=== PATIENT | female | born 1975 | race African-American/Black ===

== ENCOUNTER 2021-07-14 15:30 | Inpatient (IN) | payer MEDICAID ==
[~2021-07-14] VITALS: Ht 152.4 cm; Wt 73.1 kg
[2021-07-14] MEDS ORDERED: HYDROmorphone HCL 2 MG/ML VL IV ONE (16:30)
[2021-07-14] MEDS ORDERED: ONDANSETRON HCL 4 MG/2 ML VIAL IV ONE (16:30)
[2021-07-14] MEDS ORDERED: SODIUM CHLORIDE 0.9% 1,000 ML IV ONE (16:30)
[2021-07-14 16:41] LABS: Urine Bacteria NONE SEEN /hpf (None Seen); Urine Blood Negative /uL (Negative); Urine WBC 7 /hpf (0 - 5)
[2021-07-14 16:43] LABS: Basophils # (auto) 0 10 ^3/uL (0-0.2); Basophils % (auto) 0.2 % (0.0-2.0); Eosinophils # (auto) 0 10 ^3/uL (0-0.8); Eosinophils % (auto) 0.2 % (0.0-7.0); Hematocrit 44.1 % (36.0-46.0); Hemoglobin 14.8 g/dL (12.2-16.2); Lymphocytes # (auto) 0.4 10 ^3/uL (0.4-5.4); Lymphocytes % (auto) 5.9 % (10.0-50.0); Mean Corpuscular Hemoglobin 27.6 pg (28.0-32.0); Mean Corpuscular Hgb Conc. 33.5 g/dL (32.0-36.0); Mean Corpuscular Volume 82.4 fL (80.0-100.0); Monocytes # (auto) 0.6 10 ^3/uL (0-1.3); Monocytes % (auto) 8.3 % (0.0-12.0); Neutrophils # (auto) 6.2 10 ^3/uL (1.6-8.6); Neutrophils % (auto) 85.4 % (37.0-80.0); Red Blood Cells 5.36 10^6/uL (4.0-5.20); Red Cell Distribution Width 13.7 % (11.8-14.3); White Blood Cell 7.3 10^3/uL (4.4-10.8)
[2021-07-14 17:06] LABS: Albumin 3.8 g/dL (3.4-5.0); BUN/Creatinine Ratio 5.7; Calcium 9.3 mg/dL (8.5-10.1)
[2021-07-14 17:22] LABS: Bilirubin, Total 0.2 mg/dL (0.2-1.0); Total Protein 7.6 g/dL (6.4-8.2)
[2021-07-14] MEDS ORDERED: HYDROcodone-ACET 5/325MG TAB PO ONE (18:15)
[2021-07-14] MEDS ORDERED: PERCOT PO (21:14)
[2021-07-14] MEDS ORDERED: NITR-87 PO (21:14)
[2021-07-14] MEDS ORDERED: cefTRIAXone 1GM/50ML D5W 50 ML IV ONE (21:15)
[2021-07-15] MEDS ORDERED: SODIUM CHLORIDE 0.9% 1,000 ML IV ONE (00:30)
[2021-07-15] MEDS ORDERED: ACETAMINOPHEN 500 MG TAB PO ONE (03:45)
[2021-07-15] MEDS ORDERED: IOHEXOL 350 MG/ML 100ML IJ ONE (10:09)
[2021-07-15] MEDS ORDERED: ACETAMINOPHEN 500 MG TAB PO PRN (10:15)
[2021-07-15] MEDS ORDERED: NITROGLYCERIN 0.4 MG SL TAB SL PRN ×2 (10:15→15:15)
[2021-07-15] MEDS ORDERED: MORPHINE SULFATE INJECTION 2 MG/ML SYRG IV PRN ×2 (10:15→15:15)
[2021-07-15 10:58] LABS: Basophils # (auto) 0.1 10 ^3/uL (0-0.2); Basophils % (auto) 1.8 % (0.0-2.0); Eosinophils # (auto) 0 10 ^3/uL (0-0.8); Eosinophils % (auto) 0.1 % (0.0-7.0); Hematocrit 46.7 % (36.0-46.0); Hemoglobin 15.4 g/dL (12.2-16.2); Lymphocytes # (auto) 1.3 10 ^3/uL (0.4-5.4); Lymphocytes % (auto) 23.5 % (10.0-50.0); Mean Corpuscular Hemoglobin 27.4 pg (28.0-32.0); Mean Corpuscular Volume 83.1 fL (80.0-100.0); Monocytes # (auto) 0.8 10 ^3/uL (0-1.3); Monocytes % (auto) 13.7 % (0.0-12.0); Neutrophils # (auto) 3.4 10 ^3/uL (1.6-8.6); Neutrophils % (auto) 60.9 % (37.0-80.0); Nucleated Red Blood Cells % 0.3 %; Red Blood Cells 5.62 10^6/uL (4.0-5.20); White Blood Cell 5.5 10^3/uL (4.4-10.8)
[2021-07-15 11:10] LABS: Albumin 3.5 g/dL (3.4-5.0); Calcium 8.7 mg/dL (8.5-10.1); Magnesium 2.2 mg/dL (1.6-2.6); Potassium 3.9 mmol/L (3.5-5.1)
[2021-07-15 11:18] LABS: BUN/Creatinine Ratio 7.8; Bilirubin, Total 0.3 mg/dL (0.2-1.0); CRP High Sensitivity 2.11 mg/dL (< 0.3); Total Protein 7.9 g/dL (6.4-8.2)
[2021-07-15 12:20] VITALS: BP_SYST 114; BP_SYST 129; BP_DIAS 63; BP_DIAS 82
[2021-07-15] MEDS ORDERED: PNEUMOCOCCAL VACC POLYS 25 MCG/0.5 ML VIAL IM ONE (13:15)
[2021-07-15] MEDS ORDERED: INFLUENZA QUAD 2021-2022 0.5 ML SYRG IM ONE (13:15)
[2021-07-15] MEDS ORDERED: ALUM & MAG HYDROX-SIMETH LIQ(MAALOX) 30 ML PO PRN (15:15)
[2021-07-15] MEDS ORDERED: DOCUSATE SOD 100 MG CAP PO PRN (15:15)
[2021-07-15] MEDS ORDERED: DEXTROSE (50%) 50ML SYRG IV PRN (15:15)
[2021-07-15] MEDS ORDERED: ONDANSETRON HCL 4 MG/2 ML VIAL IV PRN (15:15)
[2021-07-15] MEDS ORDERED: hydrALAZINE HCL 20 MG/ML VL IV PRN (15:15)
[2021-07-15] MEDS ORDERED: METOPROLOL SUCCINATE XL 50 MG TAB PO ONE (15:15)
[2021-07-15] MEDS ORDERED: LORazepam 0.5 MG TAB PO PRN (15:15)
[2021-07-15] MEDS ORDERED: ACETAMINOPHEN 325 MG TAB PO PRN (15:15)
[2021-07-15] MEDS: SODIUM CHLORIDE 0.9% 1,000 ML IV SCH (16:01)
[2021-07-15] MEDS: HYDROcodone-ACET 5/325MG TAB PO PRN ×2 (16:02→22:18)
[2021-07-15 17:00] VITALS: BP 127/94
[2021-07-15] MEDS: ACCU-CHEK COMFORT CURVE STRIP VI SCH ×2 (17:36→22:10)
[2021-07-15] MEDS: InsuLIN REG 1unit/0.01ml Soln (100units/ml) SC SCH ×2 (17:36→22:24)
[2021-07-15 20:29] LABS: Thyroid Stimulating Hormone 0.52 uIU/mL (0.358-3.74)
[2021-07-15 22:00] VITALS: BP 129/87
[2021-07-15] MEDS: BUDESONIDE (INHALATION) 180 MCG IH IN SCH (22:00)
[2021-07-15] MEDS: DOXYCYCLINE 100MG/250ML 250 ML IV SCH (22:09)
[2021-07-15] MEDS: ATORVASTATIN 20 MG TAB PO SCH (22:09)
[2021-07-15] MEDS: ENOXAPARIN SOD 40 MG/0.4 ML SYRINGE SC SCH (22:10)
[2021-07-15] MEDS: METOPROLOL TARTRATE 25 MG TAB PO SCH (22:12)
[2021-07-16] MEDS: ALBUTEROL SULF HFA 90MCG INH 200DOSE IN PRN ×3 (00:15→19:48)
[2021-07-16] MEDS: MORPHINE SULFATE INJECTION 2 MG/ML SYRG IV PRN ×2 (04:56→09:33)
[2021-07-16 05:00] VITALS: BP 138/83
[2021-07-16] MEDS: ACCU-CHEK COMFORT CURVE STRIP VI SCH ×4 (06:36→21:41)
[2021-07-16] MEDS: InsuLIN REG 1unit/0.01ml Soln (100units/ml) SC SCH ×4 (06:37→21:52)
[2021-07-16] MEDS: BUDESONIDE (INHALATION) 180 MCG IH IN SCH ×2 (06:44→19:48)
[2021-07-16 07:50] LABS: Basophils # (auto) 0 10 ^3/uL (0-0.2); Basophils % (auto) 0.4 % (0.0-2.0); Eosinophils # (auto) 0 10 ^3/uL (0-0.8); Eosinophils % (auto) 0.5 % (0.0-7.0); Hematocrit 42.2 % (36.0-46.0); Hemoglobin 13.9 g/dL (12.2-16.2); Lymphocytes # (auto) 1.9 10 ^3/uL (0.4-5.4); Lymphocytes % (auto) 42.1 % (10.0-50.0); Mean Corpuscular Hemoglobin 27.1 pg (28.0-32.0); Mean Corpuscular Hgb Conc. 32.9 g/dL (32.0-36.0); Mean Corpuscular Volume 82.4 fL (80.0-100.0); Monocytes # (auto) 0.7 10 ^3/uL (0-1.3); Monocytes % (auto) 16.1 % (0.0-12.0); Neutrophils # (auto) 1.8 10 ^3/uL (1.6-8.6); Neutrophils % (auto) 40.9 % (37.0-80.0); Nucleated Red Blood Cells % 0.2 %; Red Blood Cells 5.13 10^6/uL (4.0-5.20); Red Cell Distribution Width 13.5 % (11.8-14.3); White Blood Cell 4.4 10^3/uL (4.4-10.8)
[2021-07-16] MEDS: SODIUM CHLORIDE 0.9% 1,000 ML IV SCH ×2 (07:55→11:24)
[2021-07-16 08:08] LABS: Albumin 2.9 g/dL (3.4-5.0); Calcium 8.5 mg/dL (8.5-10.1); Potassium 4.9 mmol/L (3.5-5.1)
[2021-07-16 08:12] LABS: INR 1.02 (0.9-1.15); Partial Thromboplastin Time 30.3 sec (23.6-33.0)
[2021-07-16 08:15] LABS: BUN/Creatinine Ratio 12.9; Bilirubin, Total 0.2 mg/dL (0.2-1.0); Uric Acid 3.9 mg/dL (2.6-6.0)
[2021-07-16 09:00] VITALS: BP 144/93
[2021-07-16] MEDS: ASPirin 81 mg TAB PO SCH (09:33)
[2021-07-16] MEDS: DexAMETHasone SOD PHOS 10MG/1ML VIAL INJ IV SCH (09:33)
[2021-07-16] MEDS: DOXYCYCLINE 100MG/250ML 250 ML IV SCH (09:33)
[2021-07-16] MEDS: CHOLECALCIFEROL (VITD3) 2,000 UNIT CAP/TAB PO SCH (09:34)
[2021-07-16] MEDS: METOPROLOL TARTRATE 25 MG TAB PO SCH ×2 (09:34→22:07)
[2021-07-16] MEDS: ENOXAPARIN SOD 40 MG/0.4 ML SYRINGE SC SCH ×2 (09:34→21:41)
[2021-07-16] MEDS ORDERED: ZINC SULFATE 220mg CAP or TAB PO SCH (10:00)
[2021-07-16] MEDS ORDERED: ASCORBIC ACID 1,000 MG TAB PO SCH (10:00)
[2021-07-16] MEDS ORDERED: IVERMECTIN 3 MG TAB PO SCH (10:00)
[2021-07-16] MEDS ORDERED: cefTRIAXone 1GM/50ML D5W 50 ML IV ONE (12:15)
[2021-07-16 13:00] VITALS: BP 118/74
[2021-07-16] MEDS ORDERED: HYDROcodone-ACET 7.5/325MG TAB PO PRN (13:30)
[2021-07-16 17:00] VITALS: BP 129/83
[2021-07-16] MEDS: ATORVASTATIN 20 MG TAB PO SCH (21:40)
[2021-07-16] MEDS: DOXYCYCLINE 100 MG TAB/CAP PO SCH (21:41)
[2021-07-16 22:00] VITALS: BP 115/66
[2021-07-16 22:30] LABS: Urine Bacteria NONE SEEN /hpf (None Seen); Urine Blood Negative /uL (Negative); Urine Specific Gravity 1.013 (1.001-1.035); Urine WBC 3 /hpf (0 - 5)
[2021-07-16 22:46] LABS: Amphetamine Screen, Urine POSITIVE (NEGATIVE); Barbiturate Scree,Urine NEGATIVE (NEGATIVE); Benzodiazephine Screen, Urine NEGATIVE (NEGATIVE); Cannabinoid Screen, Urine NEGATIVE (NEGATIVE); Cocaine Screen, Urine NEGATIVE (NEGATIVE); Opiate Scree,Urine NEGATIVE (NEGATIVE); Phencyclidine Screen, Urine NEGATIVE (NEGATIVE)
[2021-07-17 05:00] VITALS: BP 98/64
[2021-07-17] MEDS: InsuLIN REG 1unit/0.01ml Soln (100units/ml) SC SCH ×2 (06:49→11:43)
[2021-07-17] MEDS: ACCU-CHEK COMFORT CURVE STRIP VI SCH ×2 (06:49→11:42)
[2021-07-17] MEDS: BUDESONIDE (INHALATION) 180 MCG IH IN SCH (07:24)
[2021-07-17] MEDS: ALBUTEROL SULF HFA 90MCG INH 200DOSE IN PRN (07:24)
[2021-07-17 08:00] VITALS: BP 110/70
[2021-07-17 09:00] VITALS: BP 129/85
[2021-07-17] MEDS ORDERED: cefTRIAXone 1GM/50ML D5W 50 ML IV SCH (09:00)
[2021-07-17] MEDS: ENOXAPARIN SOD 40 MG/0.4 ML SYRINGE SC SCH (10:00)
[2021-07-17] MEDS: DexAMETHasone SOD PHOS 10MG/1ML VIAL INJ IV SCH (10:07)
[2021-07-17] MEDS: ASPirin 81 mg TAB PO SCH (10:07)
[2021-07-17] MEDS: DOXYCYCLINE 100 MG TAB/CAP PO SCH (10:08)
[2021-07-17] MEDS: METOPROLOL TARTRATE 25 MG TAB PO SCH (10:08)
[2021-07-17] MEDS: CHOLECALCIFEROL (VITD3) 2,000 UNIT CAP/TAB PO SCH (10:08)
[2021-07-17] MEDS ORDERED: METF-370 PO (14:09)
[2021-07-17] MEDS ORDERED: ASPI-498 OR (14:10)
[2021-07-17 14:42] VITALS: BP 129/85
== END 2021-07-17 16:00 | disposition home or self-care (01) | DRG 137 ==
LOC: EDBD 15:30 → ER 15:30 → OVERFLOW 07-15 10:02 → EAST 07-15 12:26
PROVIDERS: ADMIT Hospitalist; ATTEND Internal Medicine Nephrology
DX: U07.1 COVID-19 (principal); J12.82 Pneumonia due to coronavirus disease 2019; E66.01 Morbid (severe) obesity due to excess calories; D72.810 Lymphocytopenia; E55.9 Vitamin D deficiency, unspecified; E11.9 Type 2 diabetes mellitus without complications; N39.0 Urinary tract infection, site not specified; I16.9 Hypertensive crisis, unspecified; E78.5 Hyperlipidemia, unspecified; I10 Essential (primary) hypertension; R16.1 Splenomegaly, not elsewhere classified; M19.90 Unspecified osteoarthritis, unspecified site; Z90.49 Acquired absence of other specified parts of digestive tract; Z68.31 Body mass index [BMI] 31.0-31.9, adult
CPT/HCPCS: 36415; 71045; 71275; 72131; 74176; 80053; 80307; 81001; 81025; 82306; 82728; 82962; 83036; 83605; 83615; 83735; 83880; 84100; 84443; 84484; 84550; 85025; 85379; 85610; 85730; 86141; 87040; 87086; 87426; 93005; 94640; 96361; 96365; 96375; G0378; J0696; J1100; J1815; J2405; J3490